=== PATIENT | male | born 1935 | race Caucasian/White ===

== ENCOUNTER 2019-02-07 06:46 | Inpatient (IN) | payer MEDICARE, OTHER, MEDICAID ==
[2019-02-07] VITALS (18 sets, daily range): BP systolic 88–123; BP diastolic 52–85; PULSE 81–115; RESP 18–31; Ht 180.3 cm; Wt 73.2 kg
[~2019-02-07] VITALS: Ht 180.3 cm; Wt 73.2 kg
[~2019-02-07 06:46] MED LIST: ACET325T45 GTB; ALBU90AE INHALATION; BISA5TAB6 GTB; DEXT1DRO6 BOTH EYES; DOCU-144 GTB; LACT10SO21 GTB; METO-335 GTB; MINE133E23 PR; MUCO4 NEB; OXYB5TAB10 GTB; SENN-120 GTB; TERA2CAP3 GTB
[2019-02-07] MEDS ORDERED: ACETAMINOPHEN 650MG/20.3ML CUP NGT STA (06:52)
[2019-02-07] MEDS ORDERED: PIPER-TAZO 3.375 GM IV (PMX) 100 ML IVPB STA (06:52)
[2019-02-07] MEDS ORDERED: SODIUM CHLORIDE 0.9% 1L BAG IV* STA (06:52)
[2019-02-07] MEDS ORDERED: CEFEPIME 2GM/50 ML (PMX) 50 ML IVPB STA (06:52)
[2019-02-07] MEDS ORDERED: ALBUTEROL 0.5% (NEB) 2.5 MG/0.5 ML AMP INH STA (06:58)
[2019-02-07] MEDS ORDERED: METHYLPREDNISOLONE 125 MG INJ IV STA (06:58)
[2019-02-07] MEDS ORDERED: IPRATROPIUM (NEB) 0.5 MG/2.5 ML AMP INH STA (06:58)
[2019-02-07] MEDS ORDERED: VANCOMYCIN IV PER PHARMACY XX SCH (09:30)
[2019-02-07] MEDS ORDERED: ONDANSETRON 4 MG INJ IV PRN (09:30)
[2019-02-07] MEDS: SOD CHLORIDE 0.9% 1,000 ML IV SCH ×2 (09:30→23:23)
[2019-02-07] MEDS ORDERED: NACL 0.9% 3 ML SYG IV SCH (09:30)
[2019-02-07] MEDS ORDERED: PIPER-TAZO 3.375 GM IV (PMX) 100 ML IVPB SCH ×2 (09:30→12:00)
[2019-02-07] MEDS ORDERED: VANCOMYCIN 1.5 GM/NS 250 ML 250 ML IVPB ONE (10:00)
[2019-02-07] MEDS ORDERED: NORepinephrine 8MG/250 ML (PMX 250 ML IV SCH (12:30)
[2019-02-07] MEDS ORDERED: LACTATED RINGER'S 500 ML IV ONE (13:30)
[2019-02-07] MEDS: PIPER-TAZO 3.375 GM IV (PMX) 100 ML IVPB SCH ×2 (13:43→22:12)
[2019-02-07] MEDS: morphine 2 MG INJ IV PRN (14:51)
[2019-02-08] VITALS (10 sets, daily range): BP systolic 109–132; BP diastolic 56–73; PULSE 83–106; RESP 20–26
[2019-02-08] MEDS: SOD CHLORIDE 0.9% 1,000 ML IV SCH ×2 (05:15→23:04)
[2019-02-08] MEDS: PANTOPRAZOLE 40 MG INJ IV SCH (05:15)
[2019-02-08] MEDS: PIPER-TAZO 3.375 GM IV (PMX) 100 ML IVPB SCH ×3 (05:16→21:16)
[2019-02-08] MEDS: ENOXAPARIN 40 MG/0.4 ML SYG SC SCH (09:22)
[2019-02-08] MEDS: VANCOMYCIN 1.25 GM/NS 250 ML 250 ML IVPB SCH (11:50)
[2019-02-09] VITALS (8 sets, daily range): BP systolic 115–157; BP diastolic 64–85; PULSE 102–145; RESP 20–22
[2019-02-09] MEDS ORDERED: LORAZEPAM 2 MG INJ IV ONE ×3 (02:17→23:30)
[2019-02-09] MEDS ORDERED: IPRATROPIUM (NEB) 0.5 MG/2.5 ML AMP HHN SCH ×2 (02:30→09:00)
[2019-02-09] MEDS: LEVALBUTEROL (NEB) 0.31 MG/3 ML AMP HHN SCH ×7 (03:01→23:12)
[2019-02-09] MEDS ORDERED: LEVALBUTEROL (NEB) 0.31 MG/3 ML AMP HHN SCH (05:00)
[2019-02-09] MEDS: PANTOPRAZOLE 40 MG INJ IV SCH (05:03)
[2019-02-09] MEDS: PIPER-TAZO 3.375 GM IV (PMX) 100 ML IVPB SCH ×3 (05:05→20:31)
[2019-02-09] MEDS: IPRATROPIUM (NEB) 0.5 MG/2.5 ML AMP HHN SCH ×6 (05:23→23:12)
[2019-02-09] MEDS: VANCOMYCIN 1.25 GM/NS 250 ML 250 ML IVPB SCH (09:04)
[2019-02-09] MEDS: ENOXAPARIN 40 MG/0.4 ML SYG SC SCH (09:28)
[2019-02-09] MEDS: FUROSEMIDE 20 MG INJ IV SCH (10:16)
[2019-02-09] MEDS: morphine 2 MG INJ IV PRN (15:35)
[2019-02-09] MEDS: DILTIAZEM 25 MG INJ IV PRN ×3 (17:25→22:57)
[2019-02-09] MEDS: LORAZEPAM 2 MG INJ IV PRN ×2 (18:48→18:58)
[2019-02-09] MEDS ORDERED: NACL 3% FOR INHALATION 15 ML NEBU NEB ONE (23:30)
[2019-02-09] MEDS ORDERED: LEVALBUTEROL (NEB) 1.25 MG/0.5 ML AMP HHN ONE (23:30)
[2019-02-09] MEDS ORDERED: MAGNESIUM SULFATE 2 GM/50 ML 50 ML IVPB ONE (23:30)
[2019-02-09] MEDS ORDERED: DILTIAZEM 25 MG INJ IV ONE (23:30)
[2019-02-09] MEDS: METOPROLOL 25 MG TAB GTB SCH (23:47)
[2019-02-10] VITALS (7 sets, daily range): BP systolic 95–174; BP diastolic 52–83; PULSE 64–147; RESP 18–25
[2019-02-10] MEDS ORDERED: DILTIAZEM-D5W 125MG/125ML DRIP 125 ML IV SCH
[2019-02-10] MEDS ORDERED: ACETYLCYSTEINE 20% 4 ML VIAL NEB ONE (01:30)
[2019-02-10] MEDS: IPRATROPIUM (NEB) 0.5 MG/2.5 ML AMP HHN SCH ×2 (05:04→10:04)
[2019-02-10] MEDS: LEVALBUTEROL (NEB) 0.31 MG/3 ML AMP HHN SCH ×2 (05:04→09:00)
[2019-02-10] MEDS: PIPER-TAZO 3.375 GM IV (PMX) 100 ML IVPB SCH ×3 (05:17→21:06)
[2019-02-10] MEDS: PANTOPRAZOLE 40 MG INJ IV SCH (05:18)
[2019-02-10] MEDS: FUROSEMIDE 20 MG INJ IV SCH (05:19)
[2019-02-10] MEDS: METOPROLOL 25 MG TAB GTB SCH ×2 (08:51→20:02)
[2019-02-10] MEDS: ENOXAPARIN 40 MG/0.4 ML SYG SC SCH ×2 (09:00→09:27)
[2019-02-10] MEDS: VANCOMYCIN 1.25 GM/NS 250 ML 250 ML IVPB SCH (10:42)
[2019-02-10] MEDS ORDERED: LORAZEPAM 2 MG INJ IV PRN (16:30)
[2019-02-11 05:06] VITALS: BP 92/53; PULSE 68; RESP 20
[2019-02-11] MEDS: PIPER-TAZO 3.375 GM IV (PMX) 100 ML IVPB SCH ×2 (05:24→13:26)
[2019-02-11] MEDS ORDERED: LANSOPRAZOLE (SOLTAB) 30 MG TAB GTB SCH (06:00)
[2019-02-11 07:30] VITALS: BP 72/42; PULSE 84; RESP 20
[2019-02-11] MEDS: METOPROLOL 25 MG TAB GTB SCH (09:00)
[2019-02-11] MEDS: ENOXAPARIN 40 MG/0.4 ML SYG SC SCH (09:05)
[2019-02-11] MEDS ORDERED: ALBUTEROL/IPRATROPIUM (NEB) 3 ML AMP HHN PRN (15:00)
[2019-02-11] MEDS ORDERED: BISACODYL 10 MG SUPP PR PRN (15:00)
[2019-02-11] MEDS ORDERED: LORAZEPAM 2 MG INJ IV PRN (15:00)
[2019-02-11] MEDS ORDERED: ACETAMINOPHEN 325 MG TAB GTB PRN (15:00)
[2019-02-11] MEDS ORDERED: SCOPOLAMINE 1.5 MG PATCH TRANSDERM SCH (15:30)
[2019-02-11] MEDS ORDERED: morphine (DRIP) 100 MG/100 ML 100 ML IV SCH (16:00)
[2019-02-11] MEDS ORDERED: DIMETHICONE STICK TOP PRN (16:30)
[2019-02-11] MEDS ORDERED: ATROPINE 1% 5 ML OPH SL PRN (16:30)
[2019-02-11] MEDS ORDERED: ARTIFICIAL TEARS 15 ML OPH BOTH EYES PRN (16:30)
== END 2019-02-12 01:30 | disposition expired | DRG 871 ==
LOC: E/R 06:46 → ICU 08:58 → 6WM 19:05 → MS1 02-10 12:03
PROVIDERS: ADMIT Internal Medicine; ATTEND Internal Medicine
PROC: 4A133R1 Monitoring of Arterial Saturation, Peripheral, Percutaneous Approach (ICD-10-PCS; principal; 2019-02-07)
PROC: 5A09357 Assistance with Respiratory Ventilation, Less than 24 Consecutive Hours, Continuous Positive Airway Pressure (ICD-10-PCS; 2019-02-07)
DX: A41.9 Sepsis, unspecified organism (principal); R65.21 Severe sepsis with septic shock; J96.01 Acute respiratory failure with hypoxia; J18.9 Pneumonia, unspecified organism; E87.1 Hypo-osmolality and hyponatremia; N17.9 Acute kidney failure, unspecified; I50.30 Unspecified diastolic (congestive) heart failure; E87.2 Acidosis; G93.40 Encephalopathy, unspecified; Z66 Do not resuscitate; J44.9 Chronic obstructive pulmonary disease, unspecified; I11.0 Hypertensive heart disease with heart failure; I48.91 Unspecified atrial fibrillation; Z93.1 Gastrostomy status; G30.9 Alzheimer's disease, unspecified; F02.80 Dementia in other diseases classified elsewhere, unspecified severity, without behavioral disturbance, psychotic disturbance, mood disturbance, and anxiety; R13.10 Dysphagia, unspecified; I25.10 Atherosclerotic heart disease of native coronary artery without angina pectoris; K76.0 Fatty (change of) liver, not elsewhere classified; F17.200 Nicotine dependence, unspecified, uncomplicated; I27.20 Pulmonary hypertension, unspecified; Z85.21 Personal history of malignant neoplasm of larynx
CPT/HCPCS: 36415; 36573; 36600; 71045; 71250; 76705; 80048; 80053; 80202; 81001; 81003; 82550; 82553; 82803; 83605; 83735; 84100; 84484; 85025; 85610; 85730; 87081; 87086; 92610; 93005; 93306; 94640; 94644; 94660; 94664; 94799; 96374; 96375; C9113; J0692; J1650; J1940; J2060; J2270; J2543; J2930; J3370; J7030; J7120